=== PATIENT | male | born 1995 | race Caucasian/White ===

== ENCOUNTER 2019-08-15 15:05 | Outpatient (CLI) | payer OTHER, SELFPAY ==
--- NOTE | ~2019-08-15 | XR_ITS ---
XR chest 2V DATE: 08/15/2019 15:57 INDICATION: Cough. TECHNIQUE: PA and lateral views COMPARISON: None FINDINGS: Normal heart size. No hilar or mediastinal enlargement. No pulmonary infiltrate or consolid ation, pleural effusion or pulmonary vascular congestion or pneumothorax. IMPRESSION: No active cardiopulmonary disease Reviewed, dictated and finalized at location B. [employer]ER
--- NOTE | ~2019-08-15 | XR_ITS ---
XR sinus min 3V DATE: 08/15/2019 15:57 INDICATION: Left-sided headache. Left-sided sinus pressure. TECHNIQUE: rayne Betancourt, lateral and submental vertical views COMPARISON: None FINDINGS: The paranasal sinuses and mastoid air cells are normally developed and aerated. The nasal t urbinates are prominent in size. There is mild leftward bowing of the nasal septum. IMPRESSION: Clear paranasal sinuses and mastoid air cells Reviewed, dictated and finalized at location B. [employer]
[2019-08-15 17:29] LABS: Basophils Absolute Auto 0.1 K/mm3 (0.0-0.1); Basophils Percent Auto 1.3 % (0.2-1.2); Eosinophils Absolute Auto 0.1 K/mm3 (0-0.3); Eosinophils Percent Auto 1.1 % (0-4.4); Hematocrit 45.3 % (42.0-52.0); Hemoglobin 15.7 g/dL (14.0-18.0); Immature Granulocyte Absolute 0.07 K/mm3 (0.00-0.031); Immature Granulocyte Percent A 1.3 % (0-0.5); Lymphocytes Absolute Auto 1.68 K/mm3 (0.9-3.2); Lymphocytes Percent Auto 30.7 % (18.3-44.2); Mean Corpuscular HGB Conc 34.7 g/dl (32-36); Mean Corpuscular Hemoglobin 30.1 pg (26-34); Mean Corpuscular Volume 86.8 fl (80-100); Mean Platelet Volume 8.9 fl (7.4-10.4); Monocytes Percent Auto 18.6 % (2.6-8.5); Neutrophils Absolute Auto 2.6 K/mm3 (1.3-6.7); Platelet Count Result 312 k/mm3 (150-375); Red Blood Count 5.22 M/mm3 (4.6-6.20); White Blood Count 5.5 K/mm3 (4.5-10.0)
[2019-08-15 17:37] LABS: Alanine Aminotransferase 37 U/L (4-50); Albumin Level 4.7 g/dL (3.5-5.1); Alkaline Phosphatase 64 U/L (38-126); Aspartate Amino Transferase 36 U/L (17-59); Blood Urea Nitrogen 8 mg/dL (9-20); Calcium 10.3 mg/dL (8.4-10.2); Carbon Dioxide 25 mmol/L (22-30); Chloride 97 mmol/L (98-107); Cholesterol 172 mg/dL (0-200); Estimated Glomerular Filt Rate > 60; Glucose 93 mg/dL (75-110); HDL Direct 55 mg/dL; Potassium 3.9 mmol/L (3.4-5.0); Sodium 138 mmol/L (137-145); Triglycerides 83 mg/dL (<150)
[2019-08-15 17:46] LABS: LDL Cholesterol Direct 101 mg/dL
[2019-08-15 17:53] LABS: Vitamin D 25 Hydroxy 24.3 ng/mL
[2019-08-15 18:05] LABS: Thyroid Stimulating Hormone 0.651 uIU/mL (0.465-4.680)
[2019-08-15 18:41] LABS: Folic Acid 15.6 ng/mL (2.76->20)
[2019-08-19 10:51] LABS: Testosterone Free 120.1 pg/mL (35.0-155.0); Testosterone Total 715 ng/dL (250-1100)
== END 2019-08-15 15:06 | disposition home or self-care (01) ==
PROVIDERS: PCP Family Medicine; Visit Provider Family Medicine
DX: R05 Cough (principal); J01.90 Acute sinusitis, unspecified; K92.0 Hematemesis; R10.9 Unspecified abdominal pain; Z79.899 Other long term (current) drug therapy; N99.89 Other postprocedural complications and disorders of genitourinary system; Z82.62 Family history of osteoporosis
CPT/HCPCS: 36415; 70220; 71046; 80053; 80061; 82306; 82607; 82746; 84402; 84403; 84443; 85025; 86140

== ENCOUNTER 2021-01-28 13:40 | Outpatient (CLI) | payer OTHER, SELFPAY ==
[2021-01-28 19:48] LABS: Basophils Absolute Auto 0.1 K/mm3 (0.0-0.1); Basophils Percent Auto 0.8 % (0.2-1.2); Eosinophils Absolute Auto 0.2 K/mm3 (0-0.3); Eosinophils Percent Auto 2.3 % (0-4.4); Hematocrit 44.7 % (42.0-52.0); Hemoglobin 14.6 g/dL (14.0-18.0); Immature Granulocyte Absolute 0.05 K/mm3 (0.00-0.031); Immature Granulocyte Percent A 0.7 % (0-0.5); Lymphocytes Absolute Auto 2.01 K/mm3 (0.9-3.2); Lymphocytes Percent Auto 28.3 % (18.3-44.2); Mean Corpuscular HGB Conc 32.7 g/dl (32-36); Mean Corpuscular Hemoglobin 29.7 pg (26-34); Mean Corpuscular Volume 90.9 fl (80-100); Mean Platelet Volume 9.1 fl (7.4-10.4); Monocytes Absolute Auto 0.4 K/mm3 (0.1-0.6); Monocytes Percent Auto 5.1 % (2.6-8.5); Neutrophils Absolute Auto 4.5 K/mm3 (1.3-6.7); Neutrophils Percent Auto 62.8 % (45.5-73.1); Platelet Count Result 345 k/mm3 (150-375); Red Blood Count 4.92 M/mm3 (4.6-6.20); Red Cell Distribution Width 12.5 % (11.5-14.5); White Blood Count 7.1 K/mm3 (4.5-10.0)
[2021-01-28 20:15] LABS: Vitamin D 25 Hydroxy 21.4 ng/mL
[2021-01-28 20:19] LABS: Erythrocyte Sedimentation Rate 3 mm/hr (0-20)
[2021-01-28 21:09] LABS: Alanine Aminotransferase 55 U/L (4-50); Albumin Level 4.7 g/dL (3.5-5.1); Alkaline Phosphatase 72 U/L (38-126); Anion Gap 10 mmol/L (8-16); Aspartate Amino Transferase 43 U/L (17-59); Blood Urea Nitrogen 8 mg/dL (9-20); CRP 0.5 mg/dL (<1.0); Calcium 9.9 mg/dL (8.4-10.2); Carbon Dioxide 26 mmol/L (22-30); Chloride 105 mmol/L (98-107); Estimated Glomerular Filt Rate > 60; Glucose 98 mg/dL (65-110); Magnesium 1.8 mg/dL (1.6-2.3); Potassium 4.3 mmol/L (3.4-5.0); Sodium 141 mmol/L (137-145)
== END 2021-01-28 13:41 | disposition home or self-care (01) ==
LOC: ANHBWCLAB 13:42
PROVIDERS: PCP Family Medicine; Visit Provider Family Medicine
DX: Z00.00 Encounter for general adult medical examination without abnormal findings (principal); G43.909 Migraine, unspecified, not intractable, without status migrainosus; R79.89 Other specified abnormal findings of blood chemistry
CPT/HCPCS: 36415; 80053; 82306; 83735; 84443; 85025; 85652; 86140